=== PATIENT | female | born 1985 | race Caucasian/White ===

== ENCOUNTER → 2016-12-31 | Outpatient (CLI) | payer BC | LOC: RAD 13:16 | PROVIDERS: ATTEND Family Medicine | DX: Z36 Encounter for antenatal screening of mother (principal) | CPT/HCPCS: 76805 ==

== ENCOUNTER → 2017-02-02 | Outpatient (CLI) | payer BC ==
[2017-02-02 11:57] VITALS: BP 117/72
== END ==
LOC: MHUC 11:16
PROVIDERS: ATTEND Physician Assistant
DX: N30.01 Acute cystitis with hematuria (principal); Z3A.23 23 weeks gestation of pregnancy
CPT/HCPCS: 81002; 99213

== ENCOUNTER 2017-02-21 13:39 | Outpatient (RCR) | payer BC ==
[~2017-02-21 13:39] MED LIST: CALC-723 PO; DOCU-34 PO; Ibuprofen PO; MPR22TI TOP; NITR100C3 PO; OXYC1TAB87 PO; PREN1TAB71 PO
== END 2017-04-30 17:08 | disposition home or self-care (01) ==
LOC: DT 13:39
PROVIDERS: ATTEND Family Medicine
DX: O24.410 Gestational diabetes mellitus in pregnancy, diet controlled (principal)
CPT/HCPCS: 97802

== ENCOUNTER → 2017-03-08 | Outpatient (CLI) | payer BC ==
--- NOTE | 2017-03-08 13:49 | Diagnostic Imaging Report ---
INDICATION: Followup placental location and echogenic cardiac focus. COMPARISON: 12/31/2016. DISCUSSION: Transabdominal sonographic evaluation of the gravid uterus was performed. Single live intrauterine at 27 weeks 6 days by sonographic measurements. Appropriate interval growth. heart rate measures 153 beats per minute. Biparietal diameter measures 7.1 cm. Head circumference measures 25.8 cm. Abdominal circumference measures 23.2 cm. Femur length measures 4.96 cm. EDC by today's ultrasound is 06/01/2017. Estimated weight is 1063 g, which is within the 9th percentile. Echogenic focus is again noted within the left ventricle, indeterminate. This is commonly an incidental finding though can be associated with some syndromes. Placenta is located posteriorly with marginal placenta previa still present with the placental margin 3.6 cm from the internal cervical os. The cervix measures 3.4 cm in length. IMPRESSION: 1. Single live intrauterine at 27 weeks 6 days by sonographic measurements. 2. Marginal placenta previa. 3. Persistent echogenic cardiac focus. Dictated by: Dictated on workstation # [id number]
== END ==
LOC: RAD 10:06
PROVIDERS: ATTEND Family Medicine
DX: Z09 Encounter for follow-up examination after completed treatment for conditions other than malignant neoplasm (principal); O28.3 Abnormal ultrasonic finding on antenatal screening of mother; Z3A.27 27 weeks gestation of pregnancy
CPT/HCPCS: 76805